=== PATIENT | male | born 1985 | race American Indian/Alaskan Native ===

== ENCOUNTER 2019-12-05 23:07 | Emergency (ER) | payer SELFPAY ==
--- NOTE | 2019-12-05 23:36 | Emergency Department Report ---
<LYDIATAD C - Last Filed: 12/06/19 04:55> ED General Adult HPI - General Chief complaint: Psych Stated complaint: SUICIDAL Time Seen by Provider: 12/05/19 23:24 - Related Data Allergies Allergy/AdvReac Type Severity Reaction Status Date / Time No Known Allergies Allergy Unverified 12/05/19 23:29 ED Medical Decision Making - Lab Data Result diagrams: 12/05/19 23:45 12/05/19 23:45 - Radiology Data Radiology results: report reviewed NECK 12/06/2019 HISTORY: neck pain injected caustic material into the right, 100CC [id number] FINDINGS: Contrast enhanced CT images of the soft tissues of the neck were obtained. Images are evaluated in the axial, coronal, and sagittal plane. There is no evidence of abnormal neck mass, fluid collection, or inflammation. Scattered bilateral cervical lymph nodes are noted, slightly more numerous on the right. These have maximum size of approximately 9-10 mm. IMPRESSION: No significant abnormality. CT ABDOMEN AND PELVIS WITH CONTRAST INDICATION: abd pain rlq pain CONTRAST: 100 cc Omnipaque 300 IV COMPARISON: None available. All CT scans at this location are performed using CT dose reduction for ALARA by means of automated exposure control. FINDINGS: Lung bases are clear of infiltrates. No pneumoperitoneum is seen. No significant abdominal wall herniation is noted. No evidence of bowel ob struction is noted. Appendix appears within normal limits. No focal inflammatory changes are seen. No urinary obstructive changes are noted. I see no abnormalities of the liver, gallbladder, bile ducts, pancreas, spleen, kidneys, or adrenals. No lymphadenopathy is seen. No free fluid is noted. IMPRESSION: No acute abnormalities are seen - Medical Decision Making ct studies negative ed workup unremarkable vitals stable pt is medically cleared for psych admission ED Disposition Clinical Impression: Suicidal behavior, Medical clearance for psychiatric admission, Depression Disposition: DC-01 TO HOME OR SELFCARE Condition: Stable Instructions: Depression (ED), Suicide Prevention for Adults (ED) Additional Instructions: Please follow-up with the [facility], or any of the outpatient psychiatric referrals that you have been given by the psychiatric team. Return to the emergency department immediately with any worsening of your symptoms, thoughts of harming your self or others, or with any acute distress. Referrals: PRIMARY CARE, [Primary Care Provider] - 3-5 Days [facility] [Outside] - 3-5 Days <INDIO MACKENZIE - Last Filed: 12/06/19 09:47> ED Medical Decision Making - Lab Data Result diagrams: 12/05/19 23:45 12/05/19 23:45 - Medical Decision Making This patient was medically cleared by the previous ER physicians. Seen by the psychiatric team who has recommended discharged home with outpatient follow-up. The patient denies any current suicidal ideations. Vital signs stable throughout his ED course. He has been instructed to return to the emergency department with any worsening of his symptoms, thoughts of harming himself or others, or if any acute distress. ED Disposition Is pt being admited?: No <DALILA SMALL - Last Filed: 12/07/19 05:28> ED General Adult HPI - General Source: patient, EMS ( EMS documentation not available at time of chart dictation ), RN notes reviewed Mode of arrival: Stretcher Limitations: No Limitations - History of Present Illness Initial comments: Patient is a 34-year-old gentleman. He is not known to myself previously. He is brought to the hospital by emergency medical services. Patient reported that he injected himself with his mother's insulin needle on the right side of his neck with pinesol and cleaning agent He reports that the injection took place at around 9:30 PM on December 05, 2019. He also reported injecting his left distal dorsal forearm. He is reportedly desponded and upset his current relationship with his girlfrie nd. There is no complaint of headache, chest pain, testicular pain, he is not homicidal, he is remarkable for his actions, and he also reports new onset right lower quadrant pain, which developed while he was here in the emergency room. The right lower quadrant pain is sharp, increases with palpation, decreases with rest and position. There is no complaint of radiation of pain. He also has mild right-sided paracervical neck pain, where he reportedly self injected. -: Gradual, Sudden Location: neck, abdomen Radiation: non-radiation Quality: aching Consistency: intermittent Improves with: rest Worsens with: movement ED Review of Systems ROS: Stated complaint: SUICIDAL Other details as noted in HPI Constitutional: denies: fever Eyes: denies: eye discharge ENT: denies: congestion Cardiovascular: denies: chest pain, syncope Genitourinary: denies: testicular pain Musculoskeletal: as per HPI, myalgia Skin: as per HPI Neurological: as per HPI Psychiatric: anxiety, suicidal thoughts. denies: homicidal thoughts Hematological/Lymphatic: as per HPI ED Past Medical Hx - Past Medical History Previous Medical History?: No - Surgical History Past Surgical History?: No - Social History Smoking Status: Current Every Day Smoker Substance Use Type: None ED Physical Exam - General Limitations: No Limitations General appearance: alert, anxious, in distress - Head Head exam: Present: atraumatic, normocephalic - Eye Eye exam: Present: normal appearance, EOMI. Absent: nystagmus - ENT ENT exam: Present: normal exam, normal orophraynx, mucous membranes moist, normal external ear exam - Neck Neck exam: Present: normal inspection, tenderness (There is point tenderness on the right anterior cervical neck, without redness, pus or streaking, there are no meningeal signs, and there is no obvious injection site), full ROM. Absent: meningismus - Respiratory Respiratory exam: Present: normal lung sounds bilaterally. Absent: respiratory distress - Cardiovascular Cardiovascular Exam: Present: regular rate, normal rhythm, normal heart sounds. Absent: bradycardia, tachycardia, irregular rhythm, systolic murmur, diastolic murmur, rubs, gallop - GI/Abdominal GI/Abdominal exam: Present: soft, tenderness, normal bowel sounds, other (There is right lower quadrant tenderness without rebound, guarding or peritoneal sign). Absent: distended, guarding, rebound, rigid, pulsatile mass - Rectal Rectal exam: Present: deferred - exam: Present: normal inspection External exam: Present: normal external exam (Chaperoned by Amy Price), other (There is normal testicular lie. There is normal cremasteric reflex. There is no testicular tenderness. There is no testicular swelling) - Extremities Exam Extremities exam: Present: normal inspection, full ROM, other (2+ pulses noted in the bilateral upper and lower extremities. There is no palpable cord. negative Homans sign. Muscular compartments are soft. The pelvis is stable.). Absent: pedal edema, calf tenderness - Back Exam Back exam: Present: normal inspection, full ROM. Absent: tenderness, CVA tenderness (R), CVA tenderness (L), paraspinal tenderness, vertebral tenderness - Neurological Exam Neurological exam: Present: alert, oriented X3, normal gait, other (No facial droop. Tongue midline. Extraocular movements intact bilaterally. Facial sensation intact to light touch in V1, V2, V3 distribution bilaterally. 5 and a 5 strength in 4 extremities. Sensation intact to light touch in 4 extremities. ). Absent: motor sensory deficit - Psychiatric Psychiatric exam: Present: anxious, suicidal ideation - Skin Skin exam: Present: warm, dry, intact, normal color. Absent: rash ED Course Vital Signs 12/05/19 12/05/19 12/05/19 23:21 23:28 23:30 Temperature 98.1 F 98.1 F Pulse Rate 77 76 Respiratory 15 20 12 Rate Blood Pressure 147/81 148/86 O2 Sat by Pulse 100 98 97 Oximetry 12/05/19 12/05/19 12/06/19 23:45 23:46 00:01 Temperature Pulse Rate 70 76 68 Respiratory 12 9 L 10 L Rate Blood Pressure 148/86 100/65 108/70 O2 Sat by Pulse 98 99 100 Oximetry 12/06/19 12/06/19 12/06/19 00:15 00:31 00:45 Temperature Pulse Rate 74 Respiratory 29 H 27 H 16 Rate Blood Pressure 108/70 128/72 128/72 O2 Sat by Pulse 100 95 98 Oximetry 12/06/19 12/06/19 12/06/19 01:00 01:17 01:31 Temperature Pulse Rate 69 82 57 L Respiratory 26 H 22 15 Rate Blood Pressure 112/72 112/72 112/72 O2 Sat by Pulse 100 95 96 Oximetry 12/06/19 12/06/19 12/06/19 01:45 02:01 02:15 Temperature Pulse Rate 66 Respiratory 13 22 20 Rate Blood Pressure 112/72 112/72 112/72 O2 Sat by Pulse 96 98 94 Oximetry 12/06/19 12/06/19 12/06/19 02:31 02:45 03:01 Temperature Pulse Rate Respiratory 17 21 21 Rate Blood Pressure 112/72 112/72 112/72 O2 Sat by Pulse 88 94 96 Oximetry 12/06/19 12/06/19 12/06/19 03:15 03:31 03:45 Temperature Pulse Rate 55 L Respiratory 20 16 24 Rate Blood Pressure 112/72 112/72 118/60 O2 Sat by Pulse 96 94 96 Oximetry 12/06/19 12/06/19 12/06/19 04:01 04:15 04:30 Temperature Pulse Rate 64 64 54 L Respiratory 23 24 20 Rate Blood Pressure 114/59 114/59 123/62 O2 Sat by Pulse 95 95 99 Oximetry 12/06/19 12/06/19 12/06/19 04:45 04:58 05:00 Temperature 98.0 F Pulse Rate 63 62 Respiratory 21 21 Rate Blood Pressure 123/62 104/57 O2 Sat by Pulse 98 97 Oximetry 12/06/19 12/06/19 12/06/19 05:15 05:30 05:45 Temperature Pulse Rate 67 57 L 55 L Respiratory 23 10 L 22 Rate Blood Pressure 104/57 118/65 118/65 O2 Sat by Pulse 96 95 98 Oximetry 12/06/19 12/06/19 12/06/19 06:00 06:15 06:31 Temperature Pulse Rate 53 L 55 L 57 L Respiratory 24 23 15 Rate Blood Pressure 106/66 106/66 117/55 O2 Sat by Pulse 100 98 98 Oximetry 12/06/19 12/06/19 12/06/19 06:45 07:01 07:15 Temperature Pulse Rate 67 65 65 Respiratory 27 H 19 21 Rate Blood Pressure 117/55 115/47 115/47 O2 Sat by Pulse 94 97 96 Oximetry 12/06/19 12/06/19 12/06/19 07:31 08:00 08:25 Temperature 97.5 F L Pulse Rate 57 L 59 L 50 L Respiratory 20 25 H 17 Rate Blood Pressure 106/57 113/55 113/55 O2 Sat by Pulse 99 100 95 Oximetry 12/06/19 12/06/19 12/06/19 08:31 08:35 08:41 Temperature Pulse Rate 81 75 72 Respiratory 20 15 Rate Blood Pressure 134/84 O2 Sat by Pulse 100 96 Oximetry 12/06/19 12/06/19 08:45 08:51 Temperature Pulse Rate 76 72 Respiratory 13 19 Rate Blood Pressure O2 Sat by Pulse 95 100 Oximetry - Reevaluation(s) Reevaluation #1: 12/06/19 00:29 Differential diagnosis, including but not limited to: Suicidality, report of self injection, medical clearance for psychiatric placement, appendicitis, colitis, diverticulitis, renal colic, perforated viscus, caustic injection into the neck Assessment and plan: 34-year-old gentleman with multiple issues. Issue #1, report of self injection with cleaning materials. There is no evidence of injection on his upper extremities. I do not see any evidence of abscess, cellulitis, myositis, his neck is supple with minimal point tenderness. In addition, the patient reportedly had a conversation with nurse Catherine Velez, where he alluded that he may not have actually injected himself. [facility] was called, they recommended 4 hours of observation, x-ray of the chest, and standard laboratory studies and EKG. His left upper extremity demonstrates no evidence of tendon dysfunction, he is neurovascularly intact, he does not require any imaging at this time. Given inconsistent history, will obtain CT scan of the neck to exclude collection of caustic fluid, although clinically I think this is unlikely. A psychiatric consultation will be obtained, and the patient is placed on emergency room hold at this time. Issue #2, acute onset of right lower quadrant pain, started when the patient presented to the emergency room. Check labs, urinalysis, CT scan of the abdomen pelvis, and reassess. Reevaluation #2: 12/06/19 01:47 care will be transferred to Dr Halie Crawford, to follow up ct neck, abdomen pelvis and complete 4 hours of medical observation If no decompensation or acute pathology noted, which I anticipate, the patient would be medically suitable for psychiatric consultation, placement, and evaluation. ED Medical Decision Making - Lab Data Result diagrams: 12/05/19 23:45 12/05/19 23:45 Vital Signs 12/05/19 12/05/19 12/05/19 23:21 23:28 23:30 Temperature 98.1 F 98.1 F Pulse Rate 77 76 Respiratory 15 20 12 Rate Blood Pressure 147/81 148/86 O2 Sat by Pulse 100 98 97 Oximetry 12/05/19 23:45 Temperature Pulse Rate 70 Respiratory 12 Rate Blood Pressure 148/86 O2 Sat by Pulse 98 Oximetry Lab Results 12/05/19 12/05/19 12/05/19 Range/Units 23:45 23:45 23:45 WBC 11.0 (4.5-11.0) K/mm3 RBC 4.73 (3.65-5.03) M/mm3 Hgb 13.3 (11.8-15.2) gm/dl Hct 39.7 (35.5-45.6) % MCV 84 (84-94) fl MCH 28 (28-32) pg MCHC 34 (32-34) % RDW 13.7 (13.2-15.2) % Plt Count 286 (140-440) K/mm3 Lymph % (Auto) 31.0 (13.4-35.0) % Caswell % (Auto) 6.8 (0.0-7.3) % Eos % (Auto) 0.8 (0.0-4.3) % Baso % (Auto) 0.9 (0.0-1.8) % Lymph # 3.4 (1.2-5.4) K/mm3 Caswell # 0.7 (0.0-0.8) K/mm3 Eos # 0.1 (0.0-0.4) K/mm3 Baso # 0.1 (0.0-0.1) K/mm3 Seg Neutrophils % 60.5 (40.0-70.0) % Seg Neutrophils # 6.7 (1.8-7.7) K/mm3 Sodium (137-145) mmol/L Potassium (3.6-5.0) mmol/L Chloride (98-107) mmol/L Carbon Dioxide (22-30) mmol/L Anion Gap mmol/L BUN (9-20) mg/dL Creatinine (0.8-1.5) mg/dL Estimated GFR ml/min BUN/Creatinine Ratio % Glucose (75-100) mg/dL Calcium (8.4-10.2) mg/dL Magnesium 2.10 (1.7-2.3) mg/dL Total Bilirubin (0.1-1.2) mg/dL AST (5-40) units/L ALT (7-56) units/L Alkaline Phosphatase (35-129) units/L Total Creatine Kinase 326 H (55-170) units/L Total Protein (6.3-8.2) g/dL Albumin (3.9-5) g/dL Albumin/Globulin Ratio % Lipase 80 H (13-60) units/L Salicylates < 0.3 L (2.8-20.0) mg/dL Acetaminophen (10.0-30.0) ug/mL Plasma/Serum Alcohol (0-0.07) % 12/05/19 12/05/19 12/05/19 Range/Units 23:45 23:45 23:45 WBC (4.5-11.0) K/mm3 RBC (3.65-5.03) M/mm3 Hgb (11.8-15.2) gm/dl Hct (35.5-45.6) % MCV (84-94) fl MCH (28-32) pg MCHC (32-34) % RDW (13.2-15.2) % Plt Count (140-440) K/mm3 Lymph % (Auto) (13.4-35.0) % Caswell % (Auto) (0.0-7.3) % Eos % (Auto) (0.0-4.3) % Baso % (Auto) (0.0-1.8) % Lymph # (1.2-5.4) K/mm3 Caswell # (0.0-0.8) K/mm3 Eos # (0.0-0.4) K/mm3 Baso # (0.0-0.1) K/mm3 Seg Neutrophils % (40.0-70.0) % Seg Neutrophils # (1.8-7.7) K/mm3 Sodium 141 (137-145) mmol/L Potassium 3.6 (3.6-5.0) mmol/L Chloride 105.8 (98-107) mmol/L Carbon Dioxide 24 (22-30) mmol/L Anion Gap 15 mmol/L BUN 10 (9-20) mg/dL Creatinine 0.9 (0.8-1.5) mg/dL Estimated GFR > 60 ml/min BUN/Creatinine Ratio 11 % Glucose 80 (75-100) mg/dL Calcium 8.5 (8.4-10.2) mg/dL Magnesium (1.7-2.3) mg/dL Total Bilirubin 0.20 (0.1-1.2) mg/dL AST 16 (5-40) units/L ALT 15 (7-56) units/L Alkaline Phosphatase 104 (35-129) units/L Total Creatine Kinase (55-170) units/L Total Protein 7.3 (6.3-8.2) g/dL Albumin 4.3 (3.9-5) g/dL Albumin/Globulin Ratio 1.4 % Lipase (13-60) units/L Salicylates (2.8-20.0) mg/dL Acetaminophen < 5.0 L (10.0-30.0) ug/mL Plasma/Serum Alcohol < 0.01 (0-0.07) % - EKG Data -: EKG Interpreted by Me EKG shows normal: sinus rhythm, axis, ST-T waves - EKG Data When compared to previous EKG there are: previous EKG unavailable 12/06/19 00:29 Sinus rhythm, 67 bpm, normal axis, QTC within normal limits, borderline first- degree AV block, the EKG is nonspecific, the EKG is not a STEMI, there is no prior for comparison - Radiology Data Radiology results: pending, image reviewed interpreted by me: X-ray of the chest is negative for acute disease. Critical care attestation.: If time is entered above; I have spent that time in minutes in the direct care of this critically ill patient, excluding procedure time. ED Disposition Is pt being admited?: No Does the pt Need Aspirin: No
[2019-12-06 00:16] LABS: Basophils # (Auto) 0.1 K/mm3 (0.0-0.1); Basophils % (Auto) 0.9 % (0.0-1.8); Eosinophils # (Auto) 0.1 K/mm3 (0.0-0.4); Eosinophils % (Auto) 0.8 % (0.0-4.3); Hematocrit 39.7 % (35.5-45.6); Hemoglobin 13.3 gm/dl (11.8-15.2); Lymphocytes # (Auto) 3.4 K/mm3 (1.2-5.4); Mean Corpuscular HGB Conc 34 % (32-34); Mean Corpuscular Volume 84 fl (84-94); Monocytes # (Auto) 0.7 K/mm3 (0.0-0.8); Monocytes % (Auto) 6.8 % (0.0-7.3); Platelet Count 286 K/mm3 (140-440); Red Blood Count 4.73 M/mm3 (3.65-5.03); Red Cell Distribution Width 13.7 % (13.2-15.2)
[2019-12-06 00:22] LABS: Alanine Aminotransferase 15 units/L (7-56); Albumin 4.3 g/dL (3.9-5); BUN/Creatinine Ratio 11; Blood Urea Nitrogen 10 mg/dL (9-20); Calcium 8.5 mg/dL (8.4-10.2); Hemolysis Index 9
[2019-12-06 00:30] LABS: INR 1.01 (0.87-1.13); Partial Thromboplastin Time 30.7 Sec. (24.2-36.6)
[2019-12-06 01:01] LABS: Bilirubin,Urine NEG (Negative); Blood,Urine NEG (Negative); Color,Urine Yellow (Yellow); Mucus,Urine 3+ /HPF; Protein,Urine <15 mg/dL mg/dL (Negative)
[2019-12-06 01:05] LABS: Amphetamine Screen,Urine PRESUMPTIVE NEGATIVE; Benzodiazepines Screen,Urine PRESUMPTIVE NEGATIVE; Cocaine Screen,Urine PRESUMPTIVE NEGATIVE; Methadone Screen,Urine PRESUMPTIVE NEGATIVE; Opiate Screen,Urine PRESUMPTIVE NEGATIVE
--- NOTE | 2019-12-06 01:16 | XRay Report ---
CHEST 1 VIEW 0034 INDICATION / CLINICAL INFORMATION: hx of od and injection into skin of right neck. COMPARISON: None available. FINDINGS: SUPPORT DEVICES: None HEART / MEDIASTINUM: No significant abnormality. LUNGS / PLEURA: No significant pulmonary or pleural abnormality. No pneumothorax. ADDITIONAL FINDINGS: No significant additional findings. IMPRESSION: No significant acute abnormality Signer Name: Luis Gregg MD Signed: 12/06/2019 1:11 AM Workstation Name: [id number]
[2019-12-06 01:26] LABS: Cannabinoid Screen,Urine PRESUMPTIVE POSITIVE
--- NOTE | 2019-12-06 02:13 | Cat Scan Report ---
CT ABDOMEN AND PELVIS WITH CONTRAST INDICATION: abd pain rlq pain CONTRAST: 100 cc Omnipaque 300 IV COMPARISON: None available. All CT scans at this location are performed using CT dose reduction for ALARA by means of automated e xposure control. FINDINGS: Lung bases are clear of infiltrates. No pneumoperitoneum is seen. No significant abdominal wall herniation is noted. No evidence of bowel obstruction is noted. Appendix appears within normal l imits. No focal inflammatory changes are seen. No urinary obstructive changes are noted. I see no abn ormalities of the liver, gallbladder, bile ducts, pancreas, spleen, kidneys, or adrenals. No lymphade nopathy is seen. No free fluid is noted. IMPRESSION: No acute abnormalities are seen Signer Name: Luis Gregg MD Signed: 12/06/2019 2:09 AM Workstation Name: [id number]
--- NOTE | 2019-12-06 02:16 | Cat Scan Report ---
NECK 12/06/2019 HISTORY: neck pain injected caustic material into the right, 100CC [id number] FINDINGS: Contrast enhanced CT images of the soft tissues of the neck were obtained. Images are evalu ated in the axial, coronal, and sagittal plane. There is no evidence of abnormal neck mass, fluid collection, or inflammation. Scattered bilateral cervical lymph nodes are noted, slightly more numerous on the right. These have m aximum size of approximately 9-10 mm. IMPRESSION: No significant abnormality. All CT scans at this location are performed using dose reduction to ALARA by means of automated expos ure control. Signer Name: Rory Hilliard MD Signed: 12/06/2019 2:12 AM Workstation Name: [id number]
[2019-12-06 08:58] VITALS: BP 134/84
== END 2019-12-06 09:57 | disposition home or self-care (01) ==
LOC: ED 23:07
DX: R45.851 Suicidal ideations (principal); R10.31 Right lower quadrant pain; M54.2 Cervicalgia; Z72.89 Other problems related to lifestyle
CPT/HCPCS: 36415; 70491; 71045; 74177; 80053; 80307; 81001; 82550; 83690; 83735; 85025; 85610; 85730; 99285; Q9967; 80320; 93005; G0480